=== PATIENT | female | born 1990 | race Caucasian/White ===

== ENCOUNTER 2017-01-02 17:01 | Emergency (ER) | payer SELFPAY ==
[2017-01-02 17:12] VITALS: BP 114/63; BMI 20.3
[2017-01-02] MEDS ORDERED: NS 1000 ML 1,000 ML IV ONE (18:33)
[2017-01-02] MEDS ORDERED: TORADOL 30 MG VIAL IVP ONE (18:33)
--- NOTE | 2017-01-02 18:33 | DR.GENAD ---
HPI - PCP Primary Care Physician: NFD - Complaint/Symptoms Chief Complaint:: PT STATES " I PULLED A TICK OFF OF ME YESTERDAY AND EVERY SINCE THAN I AM ACHING ALL OVER AND I HAVE A GILLIAM".. Self Treatment fo Chief Complaint: 2 GOODY POWDERS ... - Source History Provided: Patient - Mode of Arrival Mode of Arrival: Ambulatory - Timing Onset of Chief Complaint: 01/01/17 PMH - PMH Past Medical History: No Past Surgical History: Yes Surgical History: Other Past Surgical History Comment: TUBES IN EARS AT AGE 10 - Family History History of Family Medical Conditions: Yes Family Medical History: Cancer Family Medical History Comment: MOTHER HAD BREAST CANCER - Social History Does patient currently use any type of tobacco product: Yes Have you used tobacco products in the last 12 months: Yes Type of Tobacco Use: Cigarettes How many years tobacco product used: 5 Does any household member use tobacco: No Alcohol Use: None Do you use any recreational Drugs:: No Lives With: Family Lives Where: Home - infectious screening In the last 2 months have you had wt loss of >10#?: NO Have you had fever, night sweats or hemotysis?: No Have you traveled outside the country in the last 6 months?: No Isolation: Standard ROS - Review of Systems Eyes: No Symptoms Reported ENTM: No Symptoms Reported Respiratoy: No Symptoms Reported Cardiovascular: No Symptoms Reported Gastrointestinal/Abdominal: No Symptoms Reported Genitourinary: No Symptoms Reported Neurological: No Symptoms Reported Musculoskeletal: No Symptoms Reported Integumentary: No Symptoms Reported Hematologic/Lymphatic: No Symptoms Reported Endocrine: No Symptoms Reported Psychiatric: No Symptoms Reported All Other Systems: Reviewed and Negative PE - Vital Signs Vitals: Temperature 99.4 F Pulse Rate 108 Respiratory Rate 18 Blood Pressure 114/63 O2 Sat by Pulse Oximetry 97 - General Limitations: No Limitations General Appearance: Alert - Head Head Exam: Normal Inspection, Atraumatic - Eyes Eye exam: Normal Appearance, PERRL, EOMI - ENT ENT Exam: Normal Exam External Ear Exam: Normal External Inspection TM/Canal Exam: Bilateral Normal Nose Exam: Normal Nose Exam Mouth Exam: Normal Inspection, Drooling Throat Exam: Normal Inspection - Neck Neck Exam: Normal Inspection, Full ROM - Respiratory Respiratory Exam: Normal Lung Sounds Bilat Respiratory Exam: Bilateral Clear to Auscultation - Cardiovascular Cardiovascular Exam: Regular Rate, Normal Rhythm - Abdominal Exam Abdominal Exam: Normal Inspection, Normal Bowel Sounds Abdominal Tenderness: negative: RUQ, RLQ, LUQ, LLQ, Epigastrium, Suprapubic, Diffuse, Mild, Moderate, Severe, Other - Extremities Extremities Exam: Normal Inspection - Back Back Exam: Normal Inspection, Full ROM - Neurologic Neurological Exam: Alert, Oriented X3, CN II-XII Intact - Psychiatric Psychiatric Exam: Normal Affect, Normal Mood, Depressed - Skin Skin Exam: Warm, Dry, Other (a single punctum LLQ) Course - Reevaluation 1st: Improved ROR - Labs Reviewed Result Diagrams: 01/02/17 18:39 01/02/17 18:39 Laboratory: WBC 11.8 X10^3/uL (3.6-10.0) H 01/02/17 18:39 RBC 4.76 X10^6/uL (3.5-5.4) 01/02/17 18:39 Hgb 13.8 g/dL (12.0-16.0) 01/02/17 18:39 Hct 41.1 % (36.0-47.0) 01/02/17 18:39 MCV 86.2 fL (80.0-100.0) 01/02/17 18:39 MCH 29.0 pg (27.0-34.0) 01/02/17 18:39 MCHC 33.7 g/dL (33.0-35.0) 01/02/17 18:39 RDW 13.3 % (11.6-16.5) 01/02/17 18:39 Plt Count 210 X10^3/uL (150.0-450.0) 01/02/17 18:39 MPV 8.7 fL (7.4-11.0) 01/02/17 18:39 Neut % 77.5 % (42.0-75.0) H 01/02/17 18:39 Lymph % 17.2 % (21.0-51.0) L 01/02/17 18:39 Fisher % 4.7 % (0.0-13.0) 01/02/17 18:39 Eos % 0.3 % (0.9-2.9) L 01/02/17 18:39 Baso % 0.3 % (0.2-1.0) 01/02/17 18:39 Neut # 9.2 x10^3/uL (2.2-4.8) H 01/02/17 18:39 Lymph # 2.0 X10^3/uL (1.3-2.9) 01/02/17 18:39 Fisher # 0.6 x10^3/uL (0.3-0.8) 01/02/17 18:39 Eos # 0.0 x10^3/uL (0.0-0.2) 01/02/17 18:39 Baso # 0.0 X10^3/uL (0.0-0.1) 01/02/17 18:39 Absolute Nucleated RBC 0.0 /100WBC 01/02/17 18:39 Sodium 137 mmol/L (136-145) 01/02/17 18:39 Corrected Sodium TNP 01/02/17 18:39 Potassium 3.8 mmol/L (3.5-5.1) 01/02/17 18:39 Chloride 105 mmol/L (98-107) 01/02/17 18:39 Carbon Dioxide 28.3 mmol/L (21-32) 01/02/17 18:39 BUN 14 mg/dL (7-18) 01/02/17 18:39 Creatinine 0.86 mg/dL (0.55-1.02) 01/02/17 18:39 Est GFR (MDRD) Af Amer > 60 (>60) 01/02/17 18:39 Est GFR (MDRD) Non-Af > 60 (>60) 01/02/17 18:39 Glucose 101 mg/dL (65-99) H 01/02/17 18:39 Calcium 8.5 mg/dL (8.5-10.1) 01/02/17 18:39 Corrected Calcium TNP 01/02/17 18:39 Total Bilirubin 0.30 mg/dL (0.2-1.0) 01/02/17 18:39 AST 59 Units/L (15-37) H 01/02/17 18:39 ALT 134 Units/L (12-78) H 01/02/17 18:39 Alkaline Phosphatase 91 Units/L (46-116) 01/02/17 18:39 C-Reactive Protein 4.30 mg/L (0-3.0) H 01/02/17 18:39 Total Protein 7.8 g/dL (6.4-8.2) 01/02/17 18:39 Albumin 3.4 g/dL (3.4-5.0) 01/02/17 18:39 Globulin 4.4 g/dL (2.5-4.5) 01/02/17 18:39 Albumin/Globulin Ratio 0.8 Ratio (1.1-2.1) L 01/02/17 18:39 Specimen Type Clean catch urine 01/02/17 19:00 Urine Color Yellow (YELLOW) 01/02/17 19:00 Urine Appearance Hazy (CLEAR) 01/02/17 19:00 Urine pH 6.5 (5.0 - 8.0) 01/02/17 19:00 Ur Specific [place] 1.015 (1.000-1.030) 01/02/17 19:00 Urine Protein Negative (NEGATIVE) 01/02/17 19:00 Urine Glucose (UA) Negative (NEGATIVE) 01/02/17 19:00 Urine Ketones Negative (NEGATIVE) 01/02/17 19:00 Urine Occult Blood Negative (NEGATIVE) 01/02/17 19:00 Urine Nitrite Negative (NEGATIVE) 01/02/17 19:00 Urine Bilirubin Negative (NEGATIVE) 01/02/17 19:00 Urine Urobilinogen 2+ (NORMAL) 01/02/17 19:00 Ur Leukocyte Esterase 2+ (NEGATIVE) 01/02/17 19:00 Urine RBC Rare /HPF (NEGATIVE) 01/02/17 19:00 Urine WBC 0 - 4 /HPF (NEGATIVE) 01/02/17 19:00 Ur Squamous Epith Cells Moderate /HPF (NEGATIVE) 01/02/17 19:00 Amorphous Sediment 1+ /HPF (NEGATIVE) 01/02/17 19:00 Urine Bacteria Trace /HPF (NEGATIVE) 01/02/17 19:00 Urine Mucus Moderate /HPF (NEGATIVE) 01/02/17 19:00 Ur Culture Indicated? No/not indicated 01/02/17 19:00 Streptococcus Screen Negative (NEGATIVE) 01/02/17 18:43 - Diagnosis Discharge Problem: UTI (urinary tract infection) Qualifiers: Urinary tract infection type: acute cystitis Hematuria presence: without hematuria Qualified Code(s): N30.00 - Acute cystitis without hematuria Tick bite of abdomen Qualifiers: Encounter type: initial encounter Qualified Code(s): S30.861A - Insect bite ( nonvenomous) of abdominal wall, initial encounter; W57.XXXA - Bitten or stung by nonvenomous insect and other nonvenomous arthropods, initial encounter - Discharge Plan Condition: Stable - Follow ups/Referrals Follow ups/Referrals: NFD,None [Primary Care Provider] - 3 days - Instructions
[2017-01-02] MEDS ORDERED: TORADOL 30 MG VIAL ONE (18:36)
[2017-01-02] MEDS ORDERED: NS 1000 ML 1,000 ML ONE (18:45)
[2017-01-02 18:50] LABS: BASOPHILS % (AUTO) 0.3 % (0.2-1.0); EOSINOPHILS % (AUTO) 0.3 % (0.9-2.9); HEMATOCRIT 41.1 % (36.0-47.0); HEMOGLOBIN 13.8 g/dL (12.0-16.0); LYMPHOCYTES % (AUTO) 17.2 % (21.0-51.0); MEAN CORPUSCULAR HGB CONC 33.7 g/dL (33.0-35.0); MEAN CORPUSCULAR VOLUME 86.2 fL (80.0-100.0); MEAN PLATELET VOLUME 8.7 fL (7.4-11.0); MONOCYTES # (AUTO) 0.6 x10^3/uL (0.3-0.8); MONOCYTES % (AUTO) 4.7 % (0.0-13.0); NEUTROPHILS # (AUTO) 9.2 x10^3/uL (2.2-4.8); NEUTROPHILS % (AUTO) 77.5 % (42.0-75.0); PLATELET COUNT 210 X10^3/uL (150.0-450.0); RED BLOOD COUNT 4.76 X10^6/uL (3.5-5.4); RED CELL DISTRIBUTION WIDTH 13.3 % (11.6-16.5); WHITE BLOOD COUNT 11.8 X10^3/uL (3.6-10.0)
[2017-01-02 18:59] LABS: ALANINE AMINOTRANSFERASE 134 Units/L (12-78); ALBUMIN 3.4 g/dL (3.4-5.0); ALKALINE PHOSPHATASE 91 Units/L (46-116); ASPARTATE AMINO TRANSFERASE 59 Units/L (15-37); BLOOD UREA NITROGEN 14 mg/dL (7-18); CALCIUM 8.5 mg/dL (8.5-10.1); CARBON DIOXIDE 28.3 mmol/L (21-32); CHLORIDE 105 mmol/L (98-107); CREATININE 0.86 mg/dL (0.55-1.02); GLUCOSE 101 mg/dL (65-99); SODIUM 137 mmol/L (136-145); TOTAL PROTEIN 7.8 g/dL (6.4-8.2); eGFR BLACK RACES > 60 (>60); eGFR NON BLACK RACES > 60 (>60)
[2017-01-02 19:20] LABS: BILIRUBIN,URINE NEGATIVE (NEGATIVE); BLOOD/HEMOGLOBIN,URINE NEGATIVE (NEGATIVE); GLUCOSE, URINE NEGATIVE (NEGATIVE); KETONES,URINE NEGATIVE (NEGATIVE); LEUKOCYTE ESTERASE ,URINE 2+ (NEGATIVE); NITRITES,URINE NEGATIVE (NEGATIVE); PH,URINE 6.5 (5.0 - 8.0); PROTEIN,URINE NEGATIVE (NEGATIVE); UROBILINOGEN,URINE 2+ (NORMAL)
[2017-01-02 19:39] LABS: AMORPHOUS SEDIMENT,UR 1+ /HPF (NEGATIVE); APPEARANCE,URINE HAZY (CLEAR); BACTERIA,URINE TRACE /HPF (NEGATIVE); COLOR,URINE YELLOW (YELLOW); MUCUS,URINE MODERATE /HPF (NEGATIVE); RBC,URINE RARE /HPF (NEGATIVE); SQUAMOUS EPITHELIAL CELL,UR MODERATE /HPF (NEGATIVE)
== END 2017-01-02 20:15 | disposition home or self-care (01) ==
LOC: ER 17:15
DX: S30.861A Insect bite (nonvenomous) of abdominal wall, initial encounter (principal); N30.00 Acute cystitis without hematuria; W57.XXXA Bitten or stung by nonvenomous insect and other nonvenomous arthropods, initial encounter
CPT/HCPCS: 36415; 80053; 81001; 85025; 86140; 87070; 87880; 96365; 96374; 99283; A4222; J1885